=== PATIENT | male | born 1965 | race Caucasian/White ===

== ENCOUNTER 2019-11-03 00:25 | Emergency (ER) | payer BC ==
[2019-11-03] MEDS: Ondansetron 4 MG/2 ML SDV IVPUSH ONE (00:42)
[2019-11-03] MEDS: HYDROmorphone 1 MG/ML Syringe IVPUSH ONE ×2 (00:45→01:20)
--- NOTE | 2019-11-03 00:51 | EDM.PDOC ---
ED HPI GENERAL MEDICAL PROBLEM - General Stated Complaint: RIGHT FLANK PAIN Time Seen by Provider: 11/03/19 00:43 Source of Information: Reports: Patient History Limitations: Reports: No Limitations - History of Present Illness INITIAL COMMENTS - FREE TEXT/NARRATIVE: Patient presents with severe pain in right flank that started about (two hours ago) 2215 tonight. He has vomited 3 times, from the pain he thinks. He has never had a pain like this before. No history of kidney stones or infections. He is travelling through on his way to [place]. right flank Pain Score (Numeric/FACES): 10 - Related Data Allergies Allergy/AdvReac Type Severity Reaction Status Date / Time No Known Allergies Allergy Verified 11/03/19 00:49 Home Meds: Home Meds Escitalopram [Lexapro] 20 mg PO BEDTIME 11/03/19 [History] Omeprazole 20 mg PO BEDTIME 11/03/19 [History] Simvastatin [Zocor] 40 mg PO BEDTIME 11/03/19 [History] ED ROS GENERAL - Review of Systems Review Of Systems: See Below Constitutional: Denies: Fever, Chills, Malaise, Weakness HEENT: Reports: No Symptoms Respiratory: Denies: Shortness of Breath, Cough Cardiovascular: Reports: Lightheadedness. Denies: Chest Pain, Syncope GI/Abdominal: Reports: Abdominal Pain, Nausea, Vomiting. Denies: Decreased Appetite : Reports: Flank Pain. Denies: Dysuria, Hematuria Musculoskeletal: Denies: Neck Pain, Shoulder Pain, Arm Pain, Back Pain Skin: Denies: Cyanosis, Jaundice, Mottled, Pallor, Diaphoresis Neurological: Denies: Confusion Psychiatric: Denies: Agitation, Anxiety, Confusion ED EXAM, GI/ABD - Physical Exam Exam: See Below Exam Limited By: No Limitations General Appearance: Alert, WD/WN, No Apparent Distress (except pain discomfort) Eyes: Bilateral: Normal Appearance, EOMI Ears: Normal External Exam, Hearing Grossly Normal Nose: Normal Inspection, No Blood Throat/Mouth: Normal Inspection, Normal Voice, No Airway Compromise Head: Atraumatic, Normocephalic Neck: Normal Inspection, Full Range of Motion Respiratory/Chest: No Respiratory Distress, Lungs Clear, Normal Breath Sounds, No Accessory Muscle Use Cardiovascular: Regular Rate, Rhythm, No Murmur GI/Abdominal Exam: No Abnormal Bruit, Distended (he feels a little bloated), Tender (RLQ) Back Exam: Normal Inspection, Full Range of Motion, CVA Tenderness (R). No: CVA Tenderness (L) Extremities: Normal Inspection, Normal Range of Motion Neurological: Alert, Oriented, Normal Cognition, No Motor/Sensory Deficits Psychiatric: Normal Affect, Normal Mood Skin Exam: Warm, Dry, Intact, Normal Color, No Rash Course - Vital Signs Last Recorded V/S: Last Vital Signs Temp 96.6 F L 11/03/19 01:26 Pulse 74 11/03/19 01:26 Resp 14 11/03/19 01:26 BP 148/51 H 11/03/19 01:26 Pulse Ox 93 L 11/03/19 01:26 - Orders/Labs/Meds Labs: Laboratory Tests 11/03/19 11/03/19 11/03/19 Range/Units 00:35 00:35 01:55 WBC 8.19 (5.00-10.00) 10^3/uL RBC 5.00 (4.50-6.00) 10^6/uL Hgb 15.8 (13.0-17.0) g/dL Hct 44.0 (40.0-52.0) % MCV 88.0 (82.0-92.0) fL MCH 31.6 H (27.0-31.0) pg MCHC 35.9 (32.0-36.0) g/dL RDW 12.5 (11.5-14.5) % Plt Count 228 (150-400) 10^3/uL MPV 9.7 (7.4-10.4) fL Immature Gran % (Auto) 0.2 (0.0-5.0) % Neut % (Auto) 60.8 (50.0-70.0) % Lymph % (Auto) 25.8 (20.0-40.0) % [place] % (Auto) 8.8 H (2.0-8.0) % Eos % (Auto) 3.7 H (1.0-3.0) % Baso % (Auto) 0.7 (0.0-1.0) % Neut # (Auto) 4.98 (2.50-7.00) 10^3/uL Lymph # (Auto) 2.11 (1.00-4.00) 10^3/uL [place] # (Auto) 0.72 (0.10-0.80) 10^3/uL Eos # (Auto) 0.30 (0.10-0.30) 10^3/uL Baso # (Auto) 0.06 (0.00-0.10) 10^3/uL Immature Gran # (Auto) 0.02 (0.00-0.50) 10^3/uL Sodium 138 (136-145) mmol/L Potassium 4.1 (3.3-5.3) mmol/L Chloride 103 (98-115) mmol/L Carbon Dioxide 26.9 (21.0-32.0) mmol/L Anion Gap 12.2 (5-15) mmol/L BUN 18 (6-25) mg/dL Creatinine 1.02 (0.51-1.17) mg/dL Est Cr Clr Drug Dosing 95.14 mL/min Estimated GFR (MDRD) > 60 mL/min Glucose 129 H (75 - 99) mg/dL Calcium 9.4 (8.7-10.3) mg/dL Total Bilirubin 0.6 (0.2-1.0) mg/dL AST 50 H (15-37) U/L ALT 89 H (12-78) U/L Alkaline Phosphatase 65 (46-116) IU/L Total Protein 7.6 (6.4-8.2) g/dL Albumin 4.15 (3.00-4.80) g/dL Lipase 135 (73-393) U/L Specimen Type Urinvoid Urine Color Yellow (YELLOW) Urine Appearance Slightly cloudy H (CLEAR) Urine pH 7.0 (5.0-9.0) Ur Specific [place] 1.020 (1.005-1.030) Urine Protein Negative (NEGATIVE) mg/dL Urine Glucose (UA) Negative (NEGATIVE) mg/dL Urine Ketones Negative (NEGATIVE) mg/dL Urine Occult Blood Trace-intact H (NEGATIVE) Urine Nitrite Negative (NEGATIVE) Urine Bilirubin Negative (NEGATIVE) Urine Urobilinogen 0.2 (0.2-1.0) E.U./dL Ur Leukocyte Esterase Negative (NEGATIVE) Urine RBC 0-5 (0-5) /HPF Urine WBC 0-5 (0-5) /HPF Ur Epithelial Cells Few /LPF Urine Bacteria Few (NONE TO FEW) /HPF Meds: Medications Discontinued Medications Generic Name Dose Route Start Last Admin Trade Name Fresujit PRN Reason Stop Dose Admin Hydrocodone Bitart/Acetaminophen 8 tab 11/03/19 02:43 11/03/19 03:07 [place] 325-5 Mg PO 11/03/19 02:44 8 tab ONETIME ONE Administration Hydromorphone HCl 1 mg 11/03/19 00:35 11/03/19 00:45 Dilaudid IVPUSH 11/03/19 00:36 1 mg ONETIME ONE Administration Hydromorphone HCl 1 mg 11/03/19 01:15 11/03/19 01:20 Dilaudid IVPUSH 11/03/19 01:16 1 mg ONETIME ONE Administration Hydromorphone HCl 1 mg 11/03/19 08:45 11/03/19 09:01 Dilaudid IVPUSH 1 mg ONETIME NATHALIA Administration Sodium Chloride 1,000 mls @ 999 mls/hr 11/03/19 00:44 11/03/19 00:55 Normal Saline IV 11/03/19 01:44 999 mls/hr .BOLUS ONE Administration Sodium Chloride 50 mls @ 200 mls/min 11/03/19 01:30 11/03/19 01:48 Normal Saline IV 200 mls/min ASDIRECTED NATHALIA Administration Sodium Chloride 1,000 mls @ 999 mls/hr 11/03/19 08:44 11/03/19 09:02 Normal Saline IV 11/03/19 09:44 999 mls/hr .BOLUS ONE Administration Iopamidol 100 ml 11/03/19 01:25 11/03/19 01:48 Isovue-370 (76%) IV 11/03/19 01:26 100 ml ONETIME ONE Administration Ketorolac Tromethamine 30 mg 11/03/19 01:15 11/03/19 01:23 Toradol IVPUSH 11/03/19 01:16 30 mg ONETIME ONE Administration Ondansetron HCl 4 mg 11/03/19 00:35 11/03/19 00:42 Zofran IVPUSH 11/03/19 00:36 4 mg ONETIME ONE Administration Tamsulosin HCl 0.4 mg 11/03/19 08:45 11/03/19 09:01 Flomax PO 0.4 mg ONETIME NATHALIA Administration - Re-Assessments/Exams Free Text/Narrative Re-Assessment/Exam: 11/03/19 02:49 CT shows 2 mm right ureteral stone at ureterovesical junction. Mild hydronephrosis. Incidentally there is also a gallstone in gallbladder neck. I discussed findings and treatment plan with patient. Since he had 2 doses of Dilaudid he is very sleepy. 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 He is feeling much better and has been sleeping in ER while waiting on CT results. 11/04/19 12:58 Patient rested for several hours then was picked up by his daughter who drove from [place] to get him. Pt stable. Departure - Departure Time of Disposition: 12:00 (Left around noon on 11/03/2019) Disposition: Home, Self-Care 01 Condition: Good Clinical Impression: Ureteral calculus, right - Discharge Information Instructions: Kidney Stones, [id number] Referrals: PCP,Not In Area [Primary Care Provider] - Forms: ED Department Discharge Additional Instructions: Drink lots of water to help flush the stone. Strain your urine to collect the stone to take to your PCP for lab analysis if possible. Take the hydrocodone as directed for pain when needed. Take Ibuprofen 600 mg every 6-8 hours also if pain is worsening or persisting. Follow up with your PCP or go to ER if worsening.
[2019-11-03] MEDS: Sodium Chloride 0.9% 1,000 ML IV ONE ×2 (00:55→09:02)
[2019-11-03 01:21] LABS: ANION GAP 12.2 mmol/L (5-15); CHLORIDE,CL 103 mmol/L (98-115); SODIUM,NA 138 mmol/L (136-145)
[2019-11-03] MEDS: Ketorolac 30 MG/ML SDV IVPUSH ONE (01:23)
[2019-11-03] MEDS: Sodium Chloride 0.9% 50 ML IV SCH (01:48)
[2019-11-03] MEDS: Iopamidol 755 Mg/ML 100 ML Bottle IV ONE (01:48)
[2019-11-03] MEDS: Acetaminophen/HYDROcodone 325-5 MG Tab PO ONE (03:07)
[2019-11-03] MEDS: HYDROmorphone 1 MG/ML Syringe IVPUSH SCH (09:01)
[2019-11-03] MEDS: Tamsulosin 0.4 MG Cap.ER PO SCH (09:01)
--- NOTE | 2019-11-03 09:17 | CT ---
[id number] CT/CT Abdomen Pelvis W IV EXAM: CT Abdomen Pelvis W IV CLINICAL DATA: RIGHT FLANK PAIN COMPARISON: NO PREVIOUS SIMILAR EXAM IS AVAILABLE. FINDINGS: There is mild hydronephrosis and right-sided hydroureter There is a tiny calcification thought to be present in the distal right ureter on image 153, series 2 Streak artifact from the right hip prosthesis diminishes image detail. There is a question of small gallstones The gallbladder is not distended The gallbladder wall is normal The liver and spleen, aorta, adrenals, left kidney, and pancreas are unremarkable There is no evidence of appendicitis The pelvis shows no mass or adenopathy There are surgical changes of the lumbar spine findings IMPRESSION: MILD RIGHT-SIDED HYDRONEPHROSIS AND HYDROURETER 2 MM RADIOPAQUE CALCIFICATION AT RIGHT UVJ Elmo Ochoa MD 11/03/19 0917 Thank you for allowing us to participate in the care of your patient.
== END 2019-11-03 12:25 | disposition home or self-care (01) ==
LOC: KA.ED 00:25
DX: N13.2 Hydronephrosis with renal and ureteral calculous obstruction (principal); R42 Dizziness and giddiness
CPT/HCPCS: 74177; 80053; 81001; 83690; 85025; 96361; 96374; 96375; 96376; 99283; 99284-25; A9270-GY; J1170; J1885; J2405; J7030; J7050; Q9967

== ENCOUNTER 2020-01-13 18:25 | Emergency (ER) | payer BC ==
[2020-01-13] MEDS ORDERED: Aspirin 81 MG Tab.Chew PO ONE (19:11)
--- NOTE | 2020-01-13 19:31 | EDM.PDOC ---
<Kenyon Leon - Last Filed: 01/13/20 19:52> ED HPI GENERAL MEDICAL PROBLEM - General Chief Complaint: General Stated Complaint: pain between shoulder blades Time Seen by Provider: 01/13/20 18:45 Source of Information: Reports: Patient History Limitations: Reports: No Limitations - History of Present Illness INITIAL COMMENTS - FREE TEXT/NARRATIVE: 54-year-old male presents to the emergency room with complaints of upper back scapular pain. He reports approximately 48-hour history of pain in his upper back that seems to worsen with exertion and goes away with rest. He reports the pain lasts a couple of minutes. Been experiencing some shortness of breath with exertion but denies any current chest pain. He denies any radiation down his arms no numbness or tingling. No jaw pain. He is visiting the area and pheasant hunting with family and friends. He experienced this pain across his upper back scapular region again with exercise. He rested and it once again resolved. His family past medical history is significant for underlying coronary artery disease and heart attack. His mother had a heart attack at age 60 and underwent an angiogram with stent placement. His maternal grandfather had from a heart attack at age 55. His siblings no report of medical problems. Onset Date: 01/11/20 Duration: Day(s): (2 days), Getting Worse, Recurring (lasts 2 minutes with exertion) Location: Reports: Radiates to (upper back, scapula) Quality: Reports: Ache Severity: Moderate Improves with: Reports: Rest Worsens with: Reports: Other (activity, exertion ) Context: Reports: Exercise (hunting pheasants) Associated Symptoms: Denies: Chest Pain, Diaphoresis, Nausea/Vomiting, Shortness of Breath Upper Back Pain Score (Numeric/FACES): 5 - Related Data Allergies Allergy/AdvReac Type Severity Reaction Status Date / Time No Known Allergies Allergy Verified 01/13/20 18:39 Home Meds: Home Meds Omeprazole 20 mg PO BEDTIME 11/03/19 [History] Simvastatin [Zocor] 40 mg PO BEDTIME 11/03/19 [History] Aspirin [Aspirin EC] 81 mg PO 0900 01/13/20 [History] Citalopram Hydrobromide [Celexa] 40 mg PO BEDTIME 01/13/20 [History] Metoprolol Tartrate 25 mg PO BID 30 Days #60 tablet 01/13/20 [Rx] Nitroglycerin [Nitrostat] 0.4 mg SL ONCALL PRN #10 tab.sl 01/13/20 [Rx] busPIRone [Buspar] 10 mg PO BID 01/13/20 [History] lisinopriL [Prinivil] 20 mg PO BEDTIME 01/13/20 [History] Past Medical History Cardiovascular History: Reports: High Cholesterol, Hypertension Respiratory History: Reports: Sleep Apnea Gastrointestinal History: Reports: Fatty Liver, GERD Genitourinary History: Reports: None Musculoskeletal History: Reports: Fracture Neurological History: Reports: None Psychiatric History: Reports: Anxiety Endocrine/Metabolic History: Reports: Obesity/BMI 30+ Hematologic History: Reports: None Immunologic History: Reports: None Dermatologic History: Reports: None - Infectious Disease History Infectious Disease History: Reports: Chicken Pox, Mononucleosis - Past Surgical History HEENT Surgical History: Reports: Adenoidectomy, Tonsillectomy Cardiovascular Surgical History: Reports: None Respiratory Surgical History: Reports: None GI Surgical History: Reports: Colonoscopy, EGD Male Surgical History: Reports: Circumcision, Renal Calculus, Vasectomy Endocrine Surgical History: Reports: None Neurological Surgical History: Reports: Lumbar Spine, Spinal Fusion Musculoskeletal Surgical History: Reports: Arthroscopic Knee, Hip Replacement, Knee Replacement, Shoulder Surgery Dermatological Surgical History: Reports: None Social & Family History - Family History Family Medical History: Noncontributory - Tobacco Use Smoking Status *Q: Never Smoker - Caffeine Use Caffeine Use: Reports: Soda - Recreational Drug Use Recreational Drug Use: No ED ROS GENERAL - Review of Systems Review Of Systems: See Below Constitutional: Reports: No Symptoms HEENT: Reports: No Symptoms Cardiovascular: Reports: Blood Pressure Problem Endocrine: Reports: No Symptoms GI/Abdominal: Reports: No Symptoms : Reports: No Symptoms Musculoskeletal: Reports: Back Pain (upper back pain) Skin: Reports: No Symptoms Neurological: Reports: No Symptoms Psychiatric: Reports: Other (increased stress lately) Hematologic/Lymphatic: Reports: No Symptoms Immunologic: Reports: No Symptoms ED EXAM, GENERAL - Physical Exam Exam: See Below Exam Limited By: No Limitations General Appearance: Alert, No Apparent Distress, Obese Eye Exam: Bilateral Eye: EOMI, PERRL (pupils equal) Ears: Hearing Grossly Normal Nose: Normal Inspection Throat/Mouth: Normal Inspection, Normal Lips, Normal Teeth, Normal Gums, Normal Oropharynx, Normal Voice, No Airway Compromise Head: Atraumatic, Normocephalic Neck: Normal Inspection, Supple, Non-Tender, Full Range of Motion. No: Carotid Bruit, Lymphadenopathy (L), Lymphadenopathy (R) Respiratory/Chest: No Respiratory Distress, Lungs Clear, Normal Breath Sounds, No Accessory Muscle Use, Chest Non-Tender Cardiovascular: Normal Peripheral Pulses, Regular Rate, Rhythm, No Murmur Peripheral Pulses: 1+: Carotid (L), Carotid (R), Radial (L), Radial (R), Posterior Tibial (L), Posterior Tibial (R), Dorsalis Pedis (L), Dorsalis Pedis (R) GI/Abdominal: Normal Bowel Sounds, Soft, Non-Tender, No Organomegaly, No Distention, No Abnormal Bruit, Other (The old incision just lateral to the umbilical, prior ALIF) Back Exam: Normal Inspection, Full Range of Motion, Other (Healed incision from previous spine surgery lumbar) Extremities: Normal Inspection, Normal Range of Motion, Non-Tender, No Pedal Edema Neurological: Alert, Oriented, CN II-XII Intact, Normal Cognition, Normal Gait, Normal Reflexes, No Motor/Sensory Deficits, Other ( Hoffmans positive right hand) Psychiatric: Normal Affect, Normal Mood Skin Exam: Warm, Dry, Intact, Normal Color, No Rash. No: Diaphoretic Lymphatic: No Adenopathy EKG INTERPRETATION EKG Date: 01/13/20 Time: 19:15 Rhythm: NSR Rate (Beats/Min): 64 [place]: Normal P-Wave: Present QRS: Normal ST-T: Normal QT: Normal Comparison: NA - No Prior EKG EKG Interpretation Comments: Normal sinus rhythm, normal ECG Course - Radiology Interpretation Free Text/Narrative:: Chest x-ray Interpretation: Impression: Cervical spine x-ray 3 views Interpretation: Impression: - Re-Assessments/Exams Free Text/Narrative Re-Assessment/Exam: 01/13/20 19:45 Patient is comfortable. Not currently experiencing scapular pain at rest. He was given a 324 mg chewable aspirin. Departure - Departure Disposition: DC/Tfer to [email or web address] Clinical Impression: Unstable angina Clinical Impression: (Ruled Out): Angina at rest, Chest pain - Discharge Information Prescriptions: Metoprolol Tartrate 25 mg PO BID 30 Days #60 tablet Nitroglycerin [Nitrostat] 0.4 mg SL ONCALL PRN #10 tab.sl PRN Reason: chest pain Instructions: Angina, [id number] Referrals: PCP,Not In Area [Primary Care Provider] - Forms: ED Department Discharge Sepsis Event Note (ED) - Evaluation Sepsis Screening Result: No Definite Risk <Jasbir Rosado - Last Filed: 01/13/20 21:15> ED HPI GENERAL MEDICAL PROBLEM - History of Present Illness INITIAL COMMENTS - FREE TEXT/NARRATIVE: He reports having around 10 episodes of this intermittent upper back pain in between scapulas. Course - Vital Signs Last Recorded V/S: Last Vital Signs Temp 98.2 F 01/13/20 19:25 Pulse 65 01/13/20 20:30 Resp 14 01/13/20 20:30 BP 151/85 H 01/13/20 20:30 Pulse Ox 96 01/13/20 20:30 - Orders/Labs/Meds Orders: Active Orders 24 hr Category Date Time Status Cervical Spine 2V or 3V [CR] Stat Exams 01/13/20 19:11 Ordered Chest 2V [CR] Stat Exams 01/13/20 19:10 Ordered Nitroglycerin [Nitrostat] Med 01/13/20 21:02 Ordered 0.4 mg SL Q5M PRN EKG 12 Lead [EK] Stat Ther 01/13/20 19:09 Ordered Medication Orders Nitroglycerin (Nitrostat) 0.4 mg SL Q5M PRN PRN Reason: Chest Pain Labs: Laboratory Tests 01/13/20 01/13/20 Range/Units 19:44 19:44 WBC 7.27 (5.00-10.00) 10^3/uL RBC 4.83 (4.50-6.00) 10^6/uL Hgb 15.5 (13.0-17.0) g/dL Hct 43.2 (40.0-52.0) % MCV 89.4 (82.0-92.0) fL MCH 32.1 H (27.0-31.0) pg MCHC 35.9 (32.0-36.0) g/dL RDW 12.3 (11.5-14.5) % Plt Count 220 (150-400) 10^3/uL MPV 9.2 (7.4-10.4) fL Immature Gran % (Auto) 0.1 (0.0-5.0) % Neut % (Auto) 51.8 (50.0-70.0) % Lymph % (Auto) 34.3 (20.0-40.0) % [place] % (Auto) 8.5 H (2.0-8.0) % Eos % (Auto) 4.7 H (1.0-3.0) % Baso % (Auto) 0.6 (0.0-1.0) % Neut # (Auto) 3.77 (2.50-7.00) 10^3/uL Lymph # (Auto) 2.49 (1.00-4.00) 10^3/uL [place] # (Auto) 0.62 (0.10-0.80) 10^3/uL Eos # (Auto) 0.34 H (0.10-0.30) 10^3/uL Baso # (Auto) 0.04 (0.00-0.10) 10^3/uL Immature Gran # (Auto) 0.01 (0.00-0.50) 10^3/uL Sodium 138 (136-145) mmol/L Potassium 4.0 (3.3-5.3) mmol/L Chloride 103 (98-115) mmol/L Carbon Dioxide 22.2 (21.0-32.0) mmol/L Anion Gap 16.8 H (5-15) mmol/L BUN 14 (6-25) mg/dL Creatinine 0.76 (0.51-1.17) mg/dL Est Cr Clr Drug Dosing 124.11 mL/min Estimated GFR (MDRD) > 60 mL/min Glucose 112 H (75 - 99) mg/dL Calcium 8.9 (8.7-10.3) mg/dL Troponin I 0.05 (0.00-0.070) ng/mL Meds: Medications Generic Name Dose Route Start Last Admin Trade Name Freq PRN Reason Stop Dose Admin Nitroglycerin 0.4 mg 01/13/20 21:02 Nitrostat SL Q5M PRN Chest Pain Discontinued Medications Generic Name Dose Route Start Last Admin Trade Name Freq PRN Reason Stop Dose Admin Aspirin 324 mg 01/13/20 19:11 01/13/20 19:16 Aspirin PO 01/13/20 19:12 324 mg ONETIME ONE Administration Metoprolol Tartrate 50 mg 01/13/20 21:01 Lopressor PO 01/13/20 21:02 ONETIME ONE - Re-Assessments/Exams Free Text/Narrative Re-Assessment/Exam: took over care from Kenyon CHILD at 1999. 01/13/20 20:23 01/13/20 20:33 He has not had any pain while in the ED. waiting on labs. Departure - Departure Time of Disposition: 21:03 Condition: Good, Fair - Discharge Information *PRESCRIPTION DRUG MONITORING PROGRAM REVIEWED*: No *COPY OF PRESCRIPTION DRUG MONITORING REPORT IN PATIENT VINAY: No Sepsis Event Note (ED) - Focused Exam Vital Signs: Vital Signs Temp Pulse Resp BP Pulse Ox 01/13/20 20:30 65 14 151/85 H 96 01/13/20 20:15 67 14 139/82 96 01/13/20 20:00 61 14 156/87 H 97 01/13/20 19:45 65 14 140/78 97 01/13/20 19:25 98.2 F 69 12 158/89 H 98 01/13/20 19:15 70 14 137/80 97 01/13/20 19:00 67 9 L 119/67 94 L 01/13/20 18:46 69 14 127/77 96 01/13/20 18:45 68 17 127/77 95 01/13/20 18:33 97.4 F 73 12 141/75 H 96 - My Orders Last 24 Hours: My Active Orders 01/13/20 21:02 Nitroglycerin [Nitrostat] 0.4 mg SL Q5M PRN - Assessment/Plan Last 24 Hours: My Active Orders 01/13/20 21:02 Nitroglycerin [Nitrostat] 0.4 mg SL Q5M PRN
[2020-01-13 20:15] LABS: ANION GAP 16.8 mmol/L (5-15); CHLORIDE,CL 103 mmol/L (98-115); SODIUM,NA 138 mmol/L (136-145)
[2020-01-13] MEDS ORDERED: Metoprolol Tartrate 50 MG Tab PO ONE (21:01)
[2020-01-13] MEDS ORDERED: Nitroglycerin 0.4 MG Tab.SL SL PRN (21:02)
[2020-01-13 21:11] VITALS: BP 149/83
[2020-01-13 21:41] VITALS: PULSE 61
--- NOTE | 2020-01-14 08:31 | CR ---
[id number] RAD/RAD Cervical Spine 2-3V Exam: RAD Cervical Spine 2-3V Indication:UPPER BACK PAIN Comparison: No prior imaging for comparison. Discussion/Impression: Straightening of the normal cervical lordosis. Degenerative disc disease with slight loss of intervertebral disc height at C5-6 and C6-7. No acute fracture or compression deformity. Soft tissues are unremarkable. Kenyon Ware MD 01/14/20 0831 Thank you for allowing us to participate in the care of your patient.
--- NOTE | 2020-01-14 08:32 | CR ---
[id number] RAD/RAD Chest PA And Lateral EXAM: RAD Chest PA And Lateral INDICATION: SCAPULAR AND BACK PAIN COMPARISON: None. DISCUSSION: Borderline cardiomegaly and central vascular congestion. Lungs are clear. No pleural effusion or pneumothorax. IMPRESSION: As above. Kenyon Ware MD 01/14/20 0832 Thank you for allowing us to participate in the care of your patient.
== END 2020-01-13 21:15 | disposition home or self-care (01) ==
LOC: KA.ED 18:25
DX: I20.0 Unstable angina (principal); M54.6 Pain in thoracic spine; I10 Essential (primary) hypertension; E78.00 Pure hypercholesterolemia, unspecified; K21.9 Gastro-esophageal reflux disease without esophagitis; F41.9 Anxiety disorder, unspecified; E66.9 Obesity, unspecified; Z68.38 Body mass index [BMI] 38.0-38.9, adult; Z79.899 Other long term (current) drug therapy; Z79.82 Long term (current) use of aspirin
CPT/HCPCS: 36415; 71046; 72040; 80048; 84484; 85025; 93005; 99285-25; A9270-GY

== ENCOUNTER 2022-02-12 16:50 | Emergency (ER) | payer BC ==
[2022-02-12] MEDS ORDERED: Ibuprofen 600 MG Tab PO ONE (17:58)
== END 2022-02-12 18:23 | disposition home or self-care (01) ==
LOC: KA.ED 16:50
DX: S06.0X0A Concussion without loss of consciousness, initial encounter (principal); E78.00 Pure hypercholesterolemia, unspecified; E66.9 Obesity, unspecified; Z68.35 Body mass index [BMI] 35.0-35.9, adult; Z79.899 Other long term (current) drug therapy; Z79.82 Long term (current) use of aspirin; W01.198A Fall on same level from slipping, tripping and stumbling with subsequent striking against other object, initial encounter
CPT/HCPCS: 70450; 99283; A9270-GY

== ENCOUNTER 2024-12-01 08:53 | Emergency (ER) | payer BC ==
[2024-12-01 09:15] LABS: BASOPHILS ABSOLUTE AUTO 0.03 10^3/uL (0.00-0.10); BASOPHILS PERCENT AUTO 0.5 % (0.0-1.0); EOSINOPHILS ABSOLUTE AUTO 0.30 10^3/uL (0.10-0.30); EOSINOPHILS PERCENT AUTO 5.3 % (1.0-3.0); IMMATURE GRAN ABSOLUTE AUTO 0.01 10^3/uL (0.00-0.04); IMMATURE GRAN PERCENT AUTO 0.2 % (0.0-0.4); LYMPHOCYTES ABSOLUTE AUTO 1.60 10^3/uL (1.00-4.00); LYMPHOCYTES PERCENT AUTO 28.4 % (20.0-40.0); MEAN PLATELET VOLUME 9.1 fL (7.4-10.4); MONOCYTES ABSOLUTE AUTO 0.50 10^3/uL (0.10-0.80); MONOCYTES PERCENT AUTO 8.9 % (2.0-8.0); NEUTROPHILS ABSOLUTE AUTO 3.19 10^3/uL (2.50-7.00); NEUTROPHILS PERCENT AUTO 56.7 % (50.0-70.0); PLATELET COUNT,PLT 175 10^3/uL (150-400); RED BLOOD CELL COUNT 4.76 10^6/uL (4.50-6.00); RED CELL DISTRIBUTION WIDTH 12.3 % (11.5-14.5); WHITE BLOOD CELL COUNT,WBC 5.63 10^3/uL (5.00-10.00)
[2024-12-01 09:31] LABS: ALANINE AMINOTRANSFERASE,ALT 99 U/L (14-63); ASPARTATE AMNIOTRANSFERASE,AST 48 U/L (15-37); BILIRUBIN TOTAL 0.6 mg/dL (0.2-1.0); BLOOD UREA NITROGEN,BUN 17 mg/dL (7-18); CARBON DIOXIDE,CO2 26.3 mmol/L (21.0-32.0); CHLORIDE,CL 105 mmol/L (98-107); CREATININE 0.86 mg/dL (0.51-1.17); EST CRCL DRUG DOSING (CG) 106.20 mL/min; ESTIMATED GFR 99 mL/min (>=60); GLUCOSE RANDOM 115 mg/dL (70-140); POTASSIUM,K 4.2 mmol/L (3.5-5.1); PROTEIN TOTAL,TP 7.1 g/dL (6.4-8.2); SODIUM,NA 140 mmol/L (136-145)
== END 2024-12-01 11:48 | disposition home or self-care (01) ==
LOC: KA.ED 08:53
DX: R20.2 Paresthesia of skin (principal); I10 Essential (primary) hypertension; E78.00 Pure hypercholesterolemia, unspecified; E66.9 Obesity, unspecified; Z68.36 Body mass index [BMI] 36.0-36.9, adult; Z79.82 Long term (current) use of aspirin; Z79.899 Other long term (current) drug therapy
CPT/HCPCS: 70450; 80053; 84484; 85025; 99284